=== PATIENT | female | born 1945 | race Caucasian/White ===

== ENCOUNTER → 2024-01-24 09:36 | Outpatient (REF) | payer MEDICARE, OTHER, SELFPAY | LOC: RAD 09:36 | PROVIDERS: ATTENDING PHYSICIAN Family Medicine | DX: M81.0 Age-related osteoporosis without current pathological fracture (principal) | CPT/HCPCS: 77080 ==

== ENCOUNTER 2024-02-18 13:21 | Emergency (ER) | payer MEDICARE, OTHER, SELFPAY ==
[2024-02-18 13:24] VITALS: BP 158/90
[2024-02-18 13:44] VITALS: BMI 21.5
[2024-02-18] MEDS: NSS 1000 IV (14:37)
[2024-02-18 14:42] LABS: % Basophils 0.3 % (0-2); % Eosinophils 0.2 % (0-6); % Immature Granulocytes 0.3 % (0-0.5); % Lymphocytes 22.1 % (20.5-51.1); % Monocytes 8.9 % (1.7-9.3); % Neutrophils 68.2 % (42.2-75.2); Absolute Lymphocytes 1.4 10^3/uL (1.2-3.4); Absolute Monocytes 0.6 10^3/uL (0.1-0.6); Absolute Neutrophils 4.4 10^3/uL (1.4-6.5); Hematocrit 38.5 % (37.0-47.0); Hemoglobin 13.9 g/dL (12.0-16.0); Mean Corp Hgb Conc. 36.1 g/dL (33.0-37.0); Mean Corpuscular Hgb 30.2 pg (27.0-31.0); Mean Corpuscular Volume 83.5 fL (81.0-99.0); Mean Platelet Volume 9.9 fL (7.4-10.4); Nucleated Red Blood Cells % 0 %; Platelet Count 347 10^3/uL (130-400); Red Blood Cell Count 4.61 10^6/uL (4.20-5.40); Red Cell Dist. Width 11.9 % (11.5-14.5); White Blood Cell Count 6.4 10^3/uL (4.8-10.8)
[2024-02-18 15:01] LABS: ALT (SGPT) 25 U/L (0-35); AST (SGOT) 25 U/L (14-36); Albumin 4.5 g/dl (3.5-5.0); Alkaline Phosphatase 81 U/L (38-126); Blood Urea Nitrogen 11 mg/dl (7-17); Carbon Dioxide 22 mmol/L (22-30); Chloride 104 mmol/L (98-107); Estimated Creatinine Clearance 82 ml/min; Glucose 104 mg/dl (70-99); Potassium 3.9 mmol/L (3.5-5.1); Sodium 133 mmol/L (135-145); Total Bilirubin 0.7 mg/dl (0.2-1.3); Total Protein 7.4 g/dl (6.3-8.2); eGFR > 60.00
--- NOTE | 2024-02-18 15:27 | ED.GENMED ---
History of Present Illness
General
Chief Complaint: Breathing Problem
Source: patient and family
Exam Limitations: none
Time Seen by Provider: 02/18/24 14:04
Travel History
Have you had any contact with someone who has COVID-19?: Yes
Comment: COVID +
Do you have any symptoms of coronavirus? Fever > 100 degrees, chills, cough, shortness of breath, sore throat, loss of taste or smell, muscle aches, or headache?: Yes
Symptoms:: COVID +
History of Present Illness
History of Present Illness:
This is 78-year-old female presents for evaluation as she has not been feeling well for a week. She was seen at urgent care and was diagnosed with COVID. She did take a home COVID test earlier in the week it was negative. Patient states she has
not been sleeping well and just has not felt well at all. She has not been eating or drinking very well. She states she has had no fever today. She did actually get to eat some oatmeal today and actually is hungry now. She was sent for further
evaluation. She had an x-ray performed at urgent care. The patient was given clarithromycin by her PCP earlier in the week
Past History
Past History
ED Past Medical History: Asthma and Other (Mitral valve prolapse, 'tachycardia')
Social History
Tobacco: Non-smoker
Phy Exam
Physical Exam
Physical Exam:
CONSTITUTIONAL Patient alert and oriented to person, place and time. Well-appearing. Vital signs reviewed.
HEAD atraumatic, normocephalic.
EYES eyelids normal to inspection, Extraocular muscles intact, Conjunctiva normal, Sclera normal.
NECK normal range of motion, Trachea midline, no jugular venous distention.
RESPIRATORY CHEST No respiratory distress noted, Chest expansion equal, Bilateral breath sounds clear.
CARDIOVASCULAR regular rate and rhythm, Heart sounds normal.
ABDOMEN abdomen nontender, Bowel sounds normal. No distention.
BACK normal inspection, no obvious deformities
UPPER EXTREMITY range of motion normal, Motor strength normal, no cyanosis, no edema.
LOWER EXTREMITY range of motion normal, Motor strength normal, no cyanosis, no edema.
NEURO Speech normal, No focal motor deficits, Dede coma scale 15, Memory normal, Cranial Nerves intact to screening exam.
SKIN skin warm, dry, and normal in color.
PSYCHIATRIC patient oriented to person place and time, Normal affect.
Scores
Heart Failure Risk
Heart Failure Risk Score: Not Applicable
Course
Orders/Labs/Results
Orders:
Orders
02/18/24 13:35
Electrocardiogram (*1) Urgent
Reason for Study: Vertigo / Dizzy
02/18/24 13:36
EKG- Treatment ONCE
02/18/24 14:27
0.9% Sodium Chloride 1000 ml [Nss] 1,000 ml IV BOLUS
02/18/24 14:35
Complete Blood Count/With Diff Urgent
Comprehensive Metabolic Panel Urgent
02/18/24 17:27
Urinalysis Reflex To Culture Urgent
Date Specimen was Collected: 02/18/24
Time Specimen was Collected: 15:16
Abnormal Lab Results
02/18/24 02/18/24
14:35 17:27
Sodium 133 L mmol/L
(135-145)
Glucose 104 H mg/dl
(70-99)
Urine Ketones 2+ A
(Negative)
02/18/24 14:35
02/18/24 14:35
Vital Signs
Initial and Last Documented VS:
Initial Vital Signs
Temp Pulse Resp BP Pulse Ox
98.0 F 89 24 158/90 98
02/18/24 13:24 02/18/24 13:24 02/18/24 13:24 02/18/24 13:24 02/18/24 13:24
Last Documented Vital Signs
Temp Pulse Resp BP Pulse Ox
98.2 F 84 24 136/63 96
02/18/24 17:48 02/18/24 18:38 02/18/24 13:24 02/18/24 17:48 02/18/24 18:38
MDM/Problems Addressed
MDM/Problems Addressed:
COVID-19, bronchitis
*Radiology
Radiology exam reviewed: other (Outside x-ray reviewed showing no infiltrative process)
*Pulse Oximetry
Patient hypoxic: no
*Critical Care Note
Total Time (30-74mins, 75-104mins- exclusive of procedures): Not Applicable
Data Reviewed
Review of Other/Old Records Reveals: Other (Echocardiogram reviewed from January 17, 2019 showing ejection fraction of 60%)
Prescriptions/Medications Considered But Not Given:
Consider antibiotics but no signs of pneumonia and already on clarithromycin.
Patient Management
Escalation/DeEscalation of care consider admission/obs:
Patient appears well. Stable. Vitals normal. Labs grossly unremarkable. Respiratory rate normal on my exam. Not hypoxic. Chest x-ray negative. Already on clarithromycin. Okay for discharge. In fact, the patient is hungry and was able to eat
ED Attending Note
-
Portions of this chart may have been created with voice recognition software.� Occasional wrong word or��sound alike� substitutions may have occurred due to the inherent limitations of voice recognition software.
Discharge Plan
Departure
Patient Disposition: Home (Routine Discharge)
Date of Disposition: 02/18/24
Time of Disposition: 18:11
Patient with high blood pressure during this ER visit?: No
Discharge Problem:
COVID-19
Instructions: COVID-19 ED
Prescriptions:
No Action
albuterol sulfate 90 mcg/actuation Hfa Aerosol Inhaler
2 puff INHALATION 6XD PRN (Reason: sob)
Fioricet
1 tab PO PRN PRN (Reason: migraines)
Referrals:
Ramya Aguilar MD [Family Provider] -
Activity Restrictions/Additional Instructions:
Please drink plenty of fluids. Use Tylenol for fevers. Return immediately for shortness of breath, weakness, intractable vomiting or any other concerns. Please see your doctor in the next 3 to 5 days for follow-up and reevaluation.
Interventions
Interventions:
*Risk Screen - Suicide Last Done: 02/18/24 14:40
*General Assessment Last Done: 02/18/24 13:24
*Neglect/Abuse Screening Last Done: 02/18/24 14:40
ED- Fall Risk Assessment Last Done: 02/18/24 13:45
*ED COVID-19 Vaccine History Last Done: 02/18/24 13:24
*Nursing Disposition Last Done: 02/18/24 18:55
ED- Cardiac Assessment Last Done: 02/18/24 14:12
ED- Pulmonary Assessment Last Done: 02/18/24 14:12
Discharge Date and Time
Discharge Date/Time: 02/18/24 18:55
Print Language: ARMENIAN
[2024-02-18 17:48] VITALS: BP 136/63
[2024-02-18 17:54] LABS: Urine Albumin Negative (Neg - Trace); Urine Bilirubin Negative (Negative); Urine Character Clear (Clear); Urine Color Straw; Urine Glucose Negative (Negative); Urine Ketone 2+ (Negative); Urine Leukocyte Negative (Negative); Urine Nitrite Negative (Negative); Urine Occult Blood Negative (Negative); Urine Specific Gravity 1.005 (<1.030); Urine Urobilinogen Negative (Neg - 1+)
== END 2024-02-18 18:55 | disposition home or self-care (01) ==
LOC: EMR 13:21
PROVIDERS: EMERGENCY PHYSICIAN Emergency Medicine; FAMILY PHYSICIAN Family Medicine
DX: U07.1 COVID-19 (principal); R42 Dizziness and giddiness; I34.1 Nonrheumatic mitral (valve) prolapse; J45.909 Unspecified asthma, uncomplicated; Z88.5 Allergy status to narcotic agent; Z88.1 Allergy status to other antibiotic agents; Z91.040 Latex allergy status
CPT/HCPCS: 99284; 80053; 81003; 85025; 93005

== ENCOUNTER → 2024-04-16 12:27 | Outpatient (REF) | payer MEDICARE, OTHER, SELFPAY | LOC: WDC 12:27 | PROVIDERS: ATTENDING PHYSICIAN Family Medicine | DX: Z12.31 Encounter for screening mammogram for malignant neoplasm of breast (principal) | CPT/HCPCS: 77063; 77067 ==

== ENCOUNTER → 2024-06-10 07:38 | Outpatient (REF) | payer MEDICARE, OTHER, SELFPAY | LOC: RAD 07:38 | PROVIDERS: ATTENDING PHYSICIAN Family Medicine | DX: K40.90 Unilateral inguinal hernia, without obstruction or gangrene, not specified as recurrent (principal); K40.00 Bilateral inguinal hernia, with obstruction, without gangrene, not specified as recurrent | CPT/HCPCS: 76882 ==

== ENCOUNTER → 2024-07-04 12:07 | Outpatient (REF) | payer MEDICARE, OTHER, SELFPAY | LOC: RAD 12:07 | PROVIDERS: ATTENDING PHYSICIAN Surgery; FAMILY PHYSICIAN Family Medicine | DX: R10.31 Right lower quadrant pain (principal) | CPT/HCPCS: 72192 ==

== ENCOUNTER → 2024-09-06 13:25 | Outpatient (REF) | payer MEDICARE, OTHER, SELFPAY | LOC: RCS 13:25 | PROVIDERS: ATTENDING PHYSICIAN Internal Medicine Cardiovascular Disease; FAMILY PHYSICIAN Family Medicine | DX: R06.09 Other forms of dyspnea (principal) | CPT/HCPCS: 93306 ==

== ENCOUNTER → 2024-09-11 07:48 | Outpatient (REF) | payer MEDICARE, OTHER, SELFPAY | LOC: DHCBC/DCA 07:48 | PROVIDERS: ATTENDING PHYSICIAN Internal Medicine Cardiovascular Disease; FAMILY PHYSICIAN Family Medicine | DX: R06.09 Other forms of dyspnea (principal); I35.1 Nonrheumatic aortic (valve) insufficiency | CPT/HCPCS: 78452; 93017; A9500; J2785 ==

== ENCOUNTER → 2024-09-16 07:15 | Outpatient (REF) | payer MEDICARE, OTHER, SELFPAY | LOC: RAD 07:15 | PROVIDERS: ATTENDING PHYSICIAN Internal Medicine Cardiovascular Disease; FAMILY PHYSICIAN Family Medicine | DX: R06.09 Other forms of dyspnea (principal); I35.1 Nonrheumatic aortic (valve) insufficiency | CPT/HCPCS: 71046; 71100 ==

== ENCOUNTER 2025-03-20 06:28 | Day surgery (SDC) | payer MEDICARE, OTHER, SELFPAY | END 2025-03-20 15:42 | disposition home or self-care (01) | LOC: GI 06:28 | PROVIDERS: ATTENDING PHYSICIAN Internal Medicine Gastroenterology | DX: Z12.11 Encounter for screening for malignant neoplasm of colon (principal); K57.30 Diverticulosis of large intestine without perforation or abscess without bleeding; K64.8 Other hemorrhoids; D12.0 Benign neoplasm of cecum; D12.3 Benign neoplasm of transverse colon; Z86.0100 Personal history of colon polyps, unspecified | CPT/HCPCS: 45385; 88305 ==

== ENCOUNTER → 2025-04-17 12:33 | Outpatient (REF) | payer MEDICARE, OTHER, SELFPAY | LOC: WDC 12:33 | PROVIDERS: ATTENDING PHYSICIAN Family Medicine | DX: Z12.31 Encounter for screening mammogram for malignant neoplasm of breast (principal) | CPT/HCPCS: 77063; 77067 ==